=== PATIENT | male | born 1980 | race African-American/Black ===

== ENCOUNTER 2021-04-16 18:42 | Emergency (ER) | payer MEDICAID ==
[~2021-04-16] VITALS: Ht 180.3 cm; Wt 93.0 kg
--- NOTE | 2021-04-16 18:55 | NUR ---
41 YRS male c/o syncope after covid ingection awake and alert no weekness
[2021-04-16] MEDS ORDERED: BP MEDICATION (18:58)
[2021-04-16] MEDS ORDERED: FURO20TA90 (18:58)
--- NOTE | 2021-04-16 19:10 | NUR ---
hand off to Recordo rn
[2021-04-16 19:43] LABS: HEMATOCRIT 42.9 % (36.7-47.1); MEAN CORPUSCULAR HEMOGLOBIN 30.9 uug (23.8-33.4); MEAN CORPUSCULAR VOLUME 92.1 fL (73.0-96.2); PLATELET COUNT (AUTO) 336 K/uL (152-348)
[2021-04-16 19:49] LABS: CREATININE 1.5 mg/dL (0.6-1.3); POTASSIUM 3.7 mmol/L (3.5-5.1)
[2021-04-16 20:05] LABS: MAGNESIUM 2.1 mg/dL (1.8-2.4)
--- NOTE | 2021-04-16 20:51 | NUR ---
CALLED RADIOLOGY FOR VENTILATION PERFUSION LUNG SCAN, PROVIDED ALEJANDRA'S NUMBER AT [phone]. DR. JORDI MAXWELL WITH [facility].
--- NOTE | 2021-04-16 21:00 | NUR ---
Pt was accompained home with his .
--- NOTE | 2021-04-16 21:00 | NUR ---
Patient does not wish to proceed with medical care recommended by Dr. Robb. Patient given information related to possible complications, up to and including , which could occur as a result of leaving the hospital at this time. Patient verbalizes understanding of risks involved due to leaving against medical advice. Patient has signed AMA form.
--- NOTE | 2021-04-16 21:00 | NUR ---
IV removed. Catheter intact and site benign. Pressure and 4x4 gauze applied to site. No bleeding noted.
== END 2021-04-16 21:02 | disposition left against medical advice (07) ==
LOC: ER 18:44
DX: R55 Syncope and collapse (principal); I11.0 Hypertensive heart disease with heart failure; I50.9 Heart failure, unspecified; Z59.01 Sheltered homelessness; Z53.29 Procedure and treatment not carried out because of patient's decision for other reasons; R94.31 Abnormal electrocardiogram [ECG] [EKG]
CPT/HCPCS: 36415; 70030-TC; 71045; 83605; 83735; 85025; 93005; A4663

== ENCOUNTER 2021-05-02 04:10 | Inpatient (IN) | payer MEDICAID, OTHER ==
[~2021-05-02] VITALS: Ht 175.3 cm; Wt 93.0 kg
[2021-05-02] VITALS (45 sets, daily range): BP systolic 36–169; BP diastolic 18–87
[~2021-05-02 04:10] MED LIST: BP MEDICATION; FURO20TA90
--- NOTE | 2021-05-02 04:15 | NUR ---
Dr. De Oliveira at bedside for MSE.
[2021-05-02] MEDS ORDERED: METO50TA16 PO (04:27)
[2021-05-02] MEDS ORDERED: ASPI81TA31 PO (04:27)
[2021-05-02] MEDS ORDERED: SPIR25TA6 PO (04:27)
[2021-05-02] MEDS ORDERED: DIGO125T5 PO (04:27)
[2021-05-02] MEDS ORDERED: HYDR-501 PO (04:27)
[2021-05-02] MEDS ORDERED: LORAZEPAM 0.5 MG TABLET PO ONE (04:30)
[2021-05-02] MEDS ORDERED: LORAZEPAM 1 MG TABLET ONE (04:31)
--- NOTE | 2021-05-02 04:50 | NUR ---
Pt out of ER for CT.
--- NOTE | 2021-05-02 05:04 | NUR ---
Pt back to ER from CT.
[2021-05-02 05:24] LABS: MEAN CORPUSCULAR HEMOGLOBIN 30.5 uug (23.8-33.4); MEAN CORPUSCULAR VOLUME 92.5 fL (73.0-96.2); PLATELET COUNT (AUTO) 319 K/uL (152-348)
[2021-05-02 06:42] LABS: CREATININE 1.9 mg/dL (0.6-1.3); POTASSIUM 5.1 mmol/L (3.5-5.1)
[2021-05-02 06:59] LABS: BILIRUBIN,DIRECT 1.1 mg/dL (0.0-0.2); BILIRUBIN,TOTAL 2.5 mg/dL (0.2-1.0); TOTAL PROTEIN, SERUM 8.1 g/dL (6.4-8.2)
--- NOTE | 2021-05-02 07:03 | NUR ---
Report given to Jose dunn.
--- NOTE | 2021-05-02 07:10 | NUR ---
Dr Patten at bedside for full body exam, RN assisting. Patient is AO x 4, responds, but appears to be in mild distress manifested by dry heaving, although denies nausea/vomiting, although his vitals are fairly stable. Unable to get accurate SPO2 reading, after several tries. Sensors are intermittently working. Although, on good wave form, SPO2 reading is between 95 - 99% and baseline ABG's are also normal PO2 reading. Per patient, he has hx of cardiac disease and kidney disease, with meds recorded in system. 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 Denies alcohol and smoking. with new orders, RN will carryout.
[2021-05-02] MEDS ORDERED: PIPERACILLIN SODIUM/TAZOBACTAM 3.375 G in IV DEXTROSE 5% 50 ML IV ONE (07:30)
[2021-05-02] MEDS ORDERED: IV NORMAL SALINE 500 ML IV ONE (07:30)
[2021-05-02] MEDS ORDERED: DEXTROSE 50% 50 ML DISP.SYRIN ONE ×2 (07:41→09:46)
[2021-05-02] MEDS ORDERED: DEXTROSE 50% 50 ML DISP.SYRIN IV ONE ×3 (07:45→16:45)
[2021-05-02] MEDS ORDERED: PIPERACILLIN/TAZOBACTAM/D5W 50 ML IV ONE (07:46)
[2021-05-02 08:10] LABS: ETHANOL < 3 MG/DL (0-0)
[2021-05-02] MEDS ORDERED: IV D5/ 0.9% NACL 1,000 ML IV PRN (08:30)
--- NOTE | 2021-05-02 08:30 | NUR ---
After initial recheck of 102, patient went back down to 61. NS fluids stopped and switched to D5NS @ 125 cc/hr/per Dr Patten, and continue rechecks every 30 minutes.
[2021-05-02 08:39] LABS: MAGNESIUM 2.1 mg/dL (1.8-2.4)
[2021-05-02 08:41] LABS: ACETAMINOPHEN < 2.0 ug/mL (10-30); LACTATE DEHYDROGENASE 615 U/L (85-227)
--- NOTE | 2021-05-02 09:30 | NUR ---
Dr Patten s/w Dr Fritz of [facility] as requested by CM of patient' sinsurance. Per delmy Ray to admit in our hospital. CCU. Dr Bolanos was paged via [employer].
[2021-05-02] MEDS ORDERED: MORPHINE SULFATE 2 MG/1 ML DISP.SYRIN ONE (09:37)
[2021-05-02] MEDS ORDERED: VANCOMYCIN 1G/D5W 200 ML PIGGYBACK IV ONE (09:45)
--- NOTE | 2021-05-02 09:45 | NUR ---
09: RN went to patient to check blood sugar. Pt started to be in severe distress at this time, patient stated "I can't breathe". SPO2 malfunctioning, unable to get accurate reading. MD at bedside. Ordered Morphine 2mg IVP STAT and ABG STAT/RT made aware. MD also ordered CT Chest/no contrast. MD stated that also still wants a bolus of fluids despite drop in blood sugar. Changed bolus fluids from NS to LR 500cc. 30: Blood sugar check done: 43. MD made aware. Okay to still give bolus fluids, but give D50 IVP stat. 0945: All orders carried out, patient able to be sat back up on bed. RT is at bedside to do ABG on room air. SPO2 still without good wave forms, but showing 85-89% readings on RA.
--- NOTE | 2021-05-02 09:50 | NUR ---
Dr Patten s/w Dr. Bolanos who agreed to admit patient to ICU status for Lactic Acidosis and Renal Failure. Pt will go to CCU bed 1.
--- NOTE | 2021-05-02 10:00 | NUR ---
Report on hold, airframe technician is here for CT chest. But unable to take patient due to safety issues in the elevator. Initial plan is to take patient to CT then ICU, however per Nursing Identification And Records Commander, Engineering stated that both elevators are currently unsafe and they are actively working on it. Report on hold.
[2021-05-02 10:01] LABS: ABG BASE EXCESS -18.5 mmol/L; ABG HCO3 6.5 mmol/L; ABG PCO2 15.9 mmHg (35.0-45.0); ABG PH 7.229 (7.350-7.450); ABG PO2 120.7 mmHg (75.0-100.0); ABG SITE RIGHT RADIAL; ABG TOTAL HEMOGLOBIN 14.6 G/dL (13.5-18.0); COHb 0.7 % (0.5-1.5); MetHb 0.2 % (0.0-1.5); O2Hb 96.9 % (94.0-97.0); VENT MODE ROOM AIR
[2021-05-02 10:09] LABS: ABG BASE EXCESS -12.4 mmol/L; ABG HCO3 8.4 mmol/L; ABG PCO2 13.1 mmHg (35.0-45.0); ABG PH 7.424 (7.350-7.450); ABG PO2 104.6 mmHg (75.0-100.0); ABG SITE LEFT RADIAL; ABG TOTAL HEMOGLOBIN 14.9 G/dL (13.5-18.0); COHb 0.7 % (0.5-1.5); MetHb 0.2 % (0.0-1.5); O2Hb 96.8 % (94.0-97.0); VENT MODE ROOM AIR
[2021-05-02] MEDS ORDERED: IV LACTATED RINGERS SOLUTION 1,000 ML BAG IV ONE (10:15)
[2021-05-02] MEDS ORDERED: MORPHINE SULFATE 2 MG/1 ML DISP.SYRIN IV ONE ×2 (10:15→11:45)
--- NOTE | 2021-05-02 10:15 | NUR ---
Per Dr Patten, admitting MD requests patient to be in ICU PERLA, and for patient's safety and quality of care, transfer to ICU now using the guest elevator, place patients and monitor. Called CCU to give report to Danelle ICU nurse. CCU nurse and this RN with concerns about ragsdale cath and Bicarb administration, communicated to ERMD, who stated that patient's current pH say otherwise, main priority is transferring to unit while patient has fairly stabilized. WIll now transfer patient to CCU/Accmpanied by Jesus LOREDO.
--- NOTE | 2021-05-02 10:20 | NUR ---
Warm handoff to CCU Nurses. Crash cart monitored throughout transfer, normal sinus rhythm in the 90's. Pt started to dry heave in the elevator, but is still fairly responsive and follows commands. Able to transfer from chair to bed with minimal assistance. All belongings with patient, list with it. MRSA was sent. COVID (-)/
[2021-05-02 10:28] LABS: *AMPHETAMINE, URINE POSITIVE (NEGATIVE); *CANNABINOID, URINE POSITIVE (NEGATIVE); *COCCAINE, URINE NEGATIVE (NEGATIVE); *OPIATE, URINE NEGATIVE (NEGATIVE); *PHENCYCLIDINE SCREEN,URINE POSITIVE (NEGATIVE)
--- NOTE | 2021-05-02 10:40 | NUR ---
Telephone report received from Yanni Garcia. All system report received and at this time nurse question if ABG results. had been address by Md and if not we can follow up by informing admitting Dr. As stated by Ms. Jose Palacio aware and no orders received.
--- NOTE | 2021-05-02 10:50 | NUR ---
Patient in from E.R. via gopi patient noted in severe distress and short of breath as stated by him. RR in the mid-to upper 30's. HR in the NSR rate of 97, sbp of 156/96. with body temp of 96.4 Unable to obtained accurate reading of saturation. Patient cold to touch, probes noted bilateral earlobes and in fingernails. but not reading obtained. Received pt in RA. POC done at this time with reading of 104 obtained. IV access to RACMei BRISCOEA patent and infusing with D5NS at 200cc/hr. Mayuro running as well. Addendum: 05/02/21 at 1114 by MAC NGUYEN RN Pt. got situated in bed and connected to ICU monitoring.
--- NOTE | 2021-05-02 11:00 | NUR ---
Attending Dr. Bolanos notified of pt's arrival to the unit telephone report given Dr. richards of pt's current condition Stat orders for 2Decho, morphine, Picc line and Roberts insertion received. Addendum: 05/02/21 at 1117 by MAC NGUYEN RN Also orders to dcd IV fluids received and implemented.
[2021-05-02] MEDS ORDERED: MORPHINE SULFATE 2 MG/1 ML DISP.SYRIN IM PRN (11:15)
[2021-05-02 12:06] LABS: *BILIRUBIN,URIN 1+ (NEGATIVE); *CLARITY,URINE CLEAR (CLEAR); *COLOR,URINE YELLOW (YELLOW); *KETONES,URINE NEGATIVE (NEGATIVE); LEUKOCYTE ESTERASE ,URINE NEGATIVE (NEGATIVE); NITRITE, URINE NEGATIVE (NEGATIVE); PH,URINE 5.5 (5.0-8.0); UGLUCOSE NEGATIVE (NEGATIVE)
[2021-05-02 12:21] LABS: *BLOOD, URINE TRACE (NEGATIVE)
[2021-05-02] MEDS: SODIUM BICARBONATE IV PRN (12:29)
[2021-05-02] MEDS: NACL IV PRN (12:29)
[2021-05-02] MEDS: D5 IV PRN (12:29)
[2021-05-02] MEDS: NOREPINEPHRINE BITARTRATE 32 MG in IV NORMAL SALINE 218 ML IV PRN ×3 (12:41→23:00)
[2021-05-02] MEDS ORDERED: ACETAMINOPHEN 650 MG SUPP.RECT RC PRN (12:45)
[2021-05-02] MEDS ORDERED: LEVALBUTEROL HCL NEB 0.63 MG/3 ML NEBU NEB PRN (12:45)
[2021-05-02] MEDS ORDERED: ONDANSETRON 4 MG/2 ML VIAL IV PRN (12:45)
[2021-05-02] MEDS ORDERED: PHENYLEPHRINE IV 100 MG in IV NORMAL SALINE 240 ML IV PRN (12:45)
[2021-05-02] MEDS ORDERED: FUROSEMIDE 40 MG/4 ML VIAL IV ONE (12:45)
[2021-05-02] MEDS ORDERED: VANCOMYCIN IV 500 MG in IV DEXTROSE 5% 100 ML IV ONE (13:00)
--- NOTE | 2021-05-02 13:15 | NUR ---
Patient in respiratory distress restless agitated with heart rate down to bradycardia in the 47-48. pt, became cyanotic and unresponsive code luz marina called, patient with no need for CPR with returned of spontaneous circulation. At this time ER. Physician in and as previously informed pt. ready for intubation.
[2021-05-02] MEDS ORDERED: KETAMINE HCL 500 MG/10 ML INJ ONE (13:17)
[2021-05-02] MEDS ORDERED: PROPOFOL 100 ML ONE (13:25)
--- NOTE | 2021-05-02 13:26 | NUR ---
Patient received Ketamine 100mg, and a total of 200mg Succinnylcholine appropriately sedated and paralyzed and ETT 8.0 inserted with capnography verification. Patient placed on A/C 25, Tv 550, Peep +5, and 100% FIO2 and Lip line of 24 this 5 minutes later verified vi X-ray read by ER. physician. At this time and NG tube also inserted with verification also verified.
[2021-05-02] MEDS ORDERED: MORPHINE SULFATE 2 MG/1 ML DISP.SYRIN IV PRN (13:45)
[2021-05-02] MEDS: PROPOFOL 100 ML IV PRN ×2 (14:00→17:04)
[2021-05-02] MEDS ORDERED: PHENYLEPHRINE IV 50 MG in IV NORMAL SALINE 245 ML IV PRN (14:00)
[2021-05-02] MEDS ORDERED: DOSING BY PHARMACY-MD TO SPECIFY MED/ROUTE XX PRN (14:15)
--- NOTE | 2021-05-02 14:15 | NUR ---
Dr. Sibley called and updated on ABG results Vent change orders received. A/C25, Tv550, Peep+5, And FIO2 30%.
[2021-05-02 14:50] LABS: ABG BASE EXCESS -23.7 mmol/L; ABG HCO3 5.4 mmol/L; ABG PCO2 20.5 mmHg (35.0-45.0); ABG PH 7.036 (7.350-7.450); ABG PO2 559.5 mmHg (75.0-100.0); ABG SITE LEFT FEMORAL; ABG TOTAL HEMOGLOBIN 15.5 G/dL (13.5-18.0); COHb 0.2 % (0.5-1.5); MetHb 0.4 % (0.0-1.5); O2Hb 99.1 % (94.0-97.0); VENT MODE VENT - A/C; VT, ABG 550 mL
[2021-05-02] MEDS ORDERED: SUCCINYLCHOLINE CHLORIDE 200 MG/10 ML VIAL IV ONE (15:00)
[2021-05-02 15:01] LABS: CREATININE 2.9 mg/dL (0.6-1.3)
[2021-05-02 15:05] LABS: POTASSIUM 7.1 mmol/L (3.5-5.1)
[2021-05-02] MEDS ORDERED: DOPamine IV DRIP 400 MG/250ML 250 ML ONE (15:11)
[2021-05-02] MEDS ORDERED: SODIUM BICARBONATE 8.4% 50 MEQ/50 ML DISP.SYRIN IV ONE ×3 (15:11→21:00)
[2021-05-02] MEDS: DOPamine IV DRIP 400 MG/250ML 250 ML IV PRN ×3 (15:17→19:51)
[2021-05-02] MEDS ORDERED: PIPERACILLIN SODIUM/TAZOBACTAM 3.375 G in IV DEXTROSE 5% 50 ML IV SCH ×2 (16:00→17:00)
[2021-05-02] MEDS ORDERED: PIPERACILLIN/TAZO 2.25 G in IV DEXTROSE 5% 50 ML IV SCH ×2 (16:00→18:00)
--- NOTE | 2021-05-02 16:30 | NUR ---
A call back from Director [facility] [employer] Dr. Sibley report given orders for bicarb 2 amps IVP to be given at 2100 received, as well as chest Xray ABG for [id number] at 0800. am, cpk , cbc, cmp, amylase, lypase.
[2021-05-02] MEDS ORDERED: INSULIN REGULAR, HUMAN 300 UNIT/3 ML VIAL IV ONE (16:45)
[2021-05-02] MEDS ORDERED: CALCIUM GLUCONATE IV 1 GM in IV NORMAL SALINE 100 ML IV ONE (16:45)
--- NOTE | 2021-05-02 16:45 | NUR ---
Critical lab reported to Dr. Bolanos orders received and implemented at the time a call returned discussed results with Dr. Patten who remains at bedside after inserting a central line.
[2021-05-02] MEDS: PHENYLEPHRINE IV 100 MG in IV NORMAL SALINE 240 ML IV PRN (17:00)
[2021-05-02] MEDS: HYDROCORTISONE SOD SUCCINATE 100 MG/2 ML VIAL IV SCH (17:12)
[2021-05-02 17:24] LABS: BACTERIA,URINE 2 /HPF (NONE SEEN); SPERM,URINE FEW /HPF (NONE SEEN); SQUAMOUS EPITHELIAL CELL,UR FEW /HPF (NONE SEEN); URINE AMORPHOUS URATE MODERATE /HPF
--- NOTE | 2021-05-02 17:30 | NUR ---
Ms Conner Horn a lady claiming to be pt's mother at bedside She left her number . she requested to be updated. and she was informed that case management and executive secretary social welfare will follow up on pt. and that Sarah Hayesjose armando listed as next of mita and health care attorney will be informed and that she will up date her. At this time she show me her ID and a pt's sister Ms Frausto and pt's significant other and health care attorney Ms Summers approved us to discussed and update Ms. Conner and stated she can also take decisions on pt's behalf.
--- NOTE | 2021-05-02 18:52 | NUR ---
Left pt. on ventilator ETT 8.0 LL26, on A/C 25, TV 550, Peep+5 and FIO2 30%. Unable to get a saturation pt. remains cold to touch. hemodynamically unstable on neosynephrine maxed out, levophed maxed out and dopamine maxed out. Neuro-hodgson pt. left sedated and on propofol running at 50mcg/kg/min. On bicarb drip. Roberts to gravity with no urine output all disciplines involve aware. Central line to righ femoral and picc line DENILSON. patent.
--- NOTE | 2021-05-02 19:12 | NUR ---
Attending physician at bedside updating pt's Ms. Fernandez.
[2021-05-02 21:17] LABS: ALANINE AMINOTRANSFERASE 2596 U/L (16-63); ALKALINE PHOSPHATASE 153 U/L (50-136); BILIRUBIN,TOTAL 4.5 mg/dL (0.2-1.0); CARBON DIOXIDE 15 mmol/L (21-32); CHLORIDE 100 mmol/L (98-107); CREATININE 3.5 mg/dL (0.6-1.3); GLUCOSE 81 mg/dL (74-106); POTASSIUM 5.7 mmol/L (3.5-5.1); TOTAL PROTEIN, SERUM 7.8 g/dL (6.4-8.2); UREA NITROGEN, BLOOD 29 mg/dL (7-18)
[2021-05-02 21:41] LABS: ASPARTATE AMINOTRANSFERASE > 4000 U/L (15-37)
[2021-05-03] VITALS (70 sets, daily range): BP systolic 46–159; BP diastolic 26–96
[2021-05-03] MEDS: VASOPRESSIN 40 UNIT in IV NORMAL SALINE 40 ML IV PRN ×2 (00:14→09:38)
--- NOTE | 2021-05-03 01:00 | NUR ---
Slight left nare nose bleed.
[2021-05-03] MEDS: DOPamine IV DRIP 400 MG/250ML 250 ML IV PRN ×3 (02:06→07:04)
[2021-05-03] MEDS: PROPOFOL 100 ML IV PRN ×2 (02:18→14:15)
--- NOTE | 2021-05-03 02:20 | NUR ---
Unable B/P reading notified Dr Elena. To request Dr Beatriz ARTEAGA to place A-line; was placed 0315 hrs.
[2021-05-03] MEDS: D5 IV PRN ×3 (03:20→19:11)
[2021-05-03] MEDS: SODIUM BICARBONATE IV PRN ×3 (03:20→19:11)
[2021-05-03] MEDS: NACL IV PRN ×3 (03:20→19:11)
--- NOTE | 2021-05-03 04:29 | NUR ---
PATIENT ON CONT STARR VENT WITH 8.0 ET/TUBE 24CM LIP LINE, WITH ANCHOR FAST IN PLACE , VENT SETTINGS, A/C A/C 25, 550ML, 30%, PEEP 5, PT SEDATED, VERY WEAK GAG REFLEX, SEDATION GIVEN,NO VENT CHANGES MADE,Mesfin GARCIA RCP Addendum: 05/03/21 at 0432 by JOANNA GARCIA RT Amended: Links added.
[2021-05-03] MEDS: HYDROCORTISONE SOD SUCCINATE 100 MG/2 ML VIAL IV SCH ×3 (04:30→21:13)
[2021-05-03] MEDS ORDERED: Z GUARD REMEDY PASTE 57 GM TUBE TOP PRN (05:00)
[2021-05-03] MEDS: PHENYLEPHRINE IV 100 MG in IV NORMAL SALINE 240 ML IV PRN ×5 (05:40→21:45)
[2021-05-03] MEDS: NOREPINEPHRINE BITARTRATE 32 MG in IV NORMAL SALINE 218 ML IV PRN ×4 (06:00→21:48)
[2021-05-03 06:06] LABS: HEMATOCRIT 45.3 % (36.7-47.1); MEAN CORPUSCULAR HEMOGLOBIN 30.5 uug (23.8-33.4); MEAN CORPUSCULAR VOLUME 100.1 fL (73.0-96.2); PLATELET COUNT (AUTO) 137 K/uL (152-348)
[2021-05-03 06:12] LABS: *BILIRUBIN,URIN 1+ (NEGATIVE); *BLOOD, URINE 3+ (NEGATIVE); *CLARITY,URINE CLOUDY (CLEAR); *KETONES,URINE NEGATIVE (NEGATIVE); LEUKOCYTE ESTERASE ,URINE NEGATIVE (NEGATIVE); NITRITE, URINE NEGATIVE (NEGATIVE); UGLUCOSE NEGATIVE (NEGATIVE)
[2021-05-03 06:28] LABS: *COLOR,URINE BLOODY (YELLOW)
[2021-05-03 06:30] LABS: *CREATININE,URINE 33.4 mg/dL (30-125); *URINE TOTAL PROTEIN RANDOM 613.2 mg/dL (<150/24HR)
[2021-05-03 06:33] LABS: THYROID STIMULATING HORMONE 3.768 mIU/mL (0.358-3.740)
[2021-05-03 06:44] LABS: ALKALINE PHOSPHATASE 154 U/L (50-136); AMYLASE 225 U/L (25-115); BILIRUBIN,TOTAL 4.6 mg/dL (0.2-1.0); CARBON DIOXIDE 14 mmol/L (21-32); CHLORIDE 100 mmol/L (98-107); CHOLESTEROL 152 mg/dL (<200); CREATININE 4.2 mg/dL (0.6-1.3); GLUCOSE 55 mg/dL (74-106); HDL CHOLESTEROL 26 mg/dL (40-60); MAGNESIUM 2.2 mg/dL (1.8-2.4); TRIGLYCERIDES 178 MG/DL (30-150); UREA NITROGEN, BLOOD 29 mg/dL (7-18)
[2021-05-03 06:46] LABS: BACTERIA,URINE NONE SEEN /HPF (NONE SEEN); RBC,URINE TNTC /HPF (0-3); SQUAMOUS EPITHELIAL CELL,UR FEW /HPF (NONE SEEN)
[2021-05-03 07:28] LABS: CREATINE KINASE, TOTAL 1289 U/L (39-308); LIPASE 838 U/L (73-393); VANCOMYCIN,RANDOM 19.2 ug/mL (18.0-26.0)
[2021-05-03 07:58] LABS: ABG BASE EXCESS -25.7 mmol/L; ABG HCO3 4.3 mmol/L; ABG PCO2 18.3 mmHg (35.0-45.0); ABG PH 6.985 (7.350-7.450); ABG PO2 114.1 mmHg (75.0-100.0); ABG SITE A-Line; ABG TOTAL HEMOGLOBIN 12.6 G/dL (13.5-18.0); COHb 0.3 % (0.5-1.5); MetHb 0.2 % (0.0-1.5); O2Hb 95.6 % (94.0-97.0); VENT MODE VENT - A/C; VT, ABG 550 mL
--- NOTE | 2021-05-03 08:00 | NUR ---
Patient seen by attending physician DR. Luis Miguel Grewal report given and orders to continue with care plan received.
--- NOTE | 2021-05-03 08:04 | NUR ---
A call to Dr. Bernal to report most recent ABG's orders for Bicarb 3 amps IVP received and implemented.
[2021-05-03 08:14] LABS: PHOSPHOROUS 11.9 mg/dL (2.5-4.9)
[2021-05-03] MEDS ORDERED: IV LACTATED RINGERS SOLUTION 1,000 ML BAG IV ONE (08:15)
[2021-05-03] MEDS ORDERED: SODIUM BICARBONATE 8.4% 50 MEQ/50 ML DISP.SYRIN IV ONE ×2 (08:15→22:00)
[2021-05-03] MEDS ORDERED: DEXTROSE 50% 50 ML DISP.SYRIN ONE (08:25)
[2021-05-03] MEDS: PANTOPRAZOLE SODIUM 40 MG VIAL IV SCH (08:39)
[2021-05-03] MEDS: Z GUARD REMEDY PASTE 57 GM TUBE TOP SCH ×2 (08:41→20:16)
[2021-05-03] MEDS ORDERED: IV LACTATED RINGERS SOLUTION 500 ML IV ONE (08:45)
--- NOTE | 2021-05-03 08:45 | NUR ---
Received pt. on ventilator A/C 25, Tv550 Peep+5 with unreadable saturation. Hemodynamically unstable maxed out on neosyneprhine, dopamine, levophed, and pitressin. and bicarb drip running, unreadable, non-invasive SBP. Arterial line to right wrist area trouble shot and connected with reading in the 80's. Roberts to gravity, sinus rhythm in the low 120's. Central line to right Growing, and picc line DENILSON patent. Will continue to monitor.
[2021-05-03] MEDS ORDERED: CEFEPIME HCL 2 G in IV DEXTROSE 5% 100 ML IV SCH (09:00)
[2021-05-03] MEDS ORDERED: ALBUMIN HUMAN 25% 100 ML IV PRN (09:15)
[2021-05-03 09:17] LABS: ALANINE AMINOTRANSFERASE 870 U/L (16-63); ASPARTATE AMINOTRANSFERASE < 5 U/L (15-37)
--- NOTE | 2021-05-03 09:25 | NUR ---
Sherlyn Cervantes in the unit patient prepared for procedure.
--- NOTE | 2021-05-03 09:30 | NUR ---
[employer] Making Dr. uBrr in the unit to see and examine pt. report given orders to continue care plan received.
[2021-05-03] MEDS: DOPamine IV DRIP 800 MG/250ML 250 ML IV PRN ×4 (09:45→23:27)
[2021-05-03] MEDS ORDERED: PHYTONADIONE 10 MG/1 ML AMPUL SQ ONE (12:15)
--- NOTE | 2021-05-03 13:30 | NUR ---
Fixed Income Director Dr. Sibley in the unit to examine pt. report given with orders to continue care plan received.
[2021-05-03 14:40] LABS: ALKALINE PHOSPHATASE 171 U/L (50-136); BILIRUBIN,TOTAL 5.1 mg/dL (0.2-1.0); CARBON DIOXIDE 15 mmol/L (21-32); CHLORIDE 98 mmol/L (98-107); CREATININE 3.9 mg/dL (0.6-1.3); GLUCOSE 94 mg/dL (74-106); TOTAL PROTEIN, SERUM 6.6 g/dL (6.4-8.2); UREA NITROGEN, BLOOD 26 mg/dL (7-18)
[2021-05-03 15:10] LABS: ALANINE AMINOTRANSFERASE > 7000 U/L (16-63)
[2021-05-03 15:25] LABS: ASPARTATE AMINOTRANSFERASE > 4000 U/L (15-37)
--- NOTE | 2021-05-03 18:30 | NUR ---
Left pt. on ventilator A/C 25, Tv550 Peep+5 with unreadable saturation. Hemodynamically unstable maxed out on neosyneprhine, dopamine, levophed, and pitressin. and bicarb drip running, unreadable, on/off NIBP. Arterial line to right wrist area flushing patent with readings in the 60's. Roberts to gravity pt remains anuric., pt. tolerated fairly first round of dialysis un-eventfully. Will endorse to incoming shift.
[2021-05-03] MEDS: MICAFUNGIN SODIUM 50 MG in IV NORMAL SALINE 100 ML IV SCH (19:39)
[2021-05-03] MEDS: MEROPENEM 1 G in IV NORMAL SALINE 100 ML IV SCH (19:39)
--- NOTE | 2021-05-03 21:49 | NUR ---
PATIENT ON STRAR VENT WITH 8.0 ET/TUBE IN PLACE WITH ANCHOR FAST, NON RESPONSIVE, BUT DOES ASSIST AT TIMES, VERY LABORED, SETTINGS, A/C 25, 550ML, 30%, PEEP5, ATTEMPTED ABG, BUT MIXED VENOUS, RESULTS SHOWED TO GIFTY Liao , SUCTIONED VERY LITTLE PALE YELL TINGE SECRETIONS , HARD TO GET READING ON PULSE OXY, NURSING AWARE, HARD TO FEEL PULSES, AMBU BAG AT BEDSIDE .Mesfin WILSONP Addendum: 05/03/21 at 2153 by JOANNA GARCIA RT Amended: Links added.
--- NOTE | 2021-05-03 22:00 | NUR ---
Updated Matthew Villela N.P., who discussed with Dr Kinney. No new orders.
[2021-05-03 22:19] LABS: CREATININE 5.4 mg/dL (0.6-1.3)
[2021-05-03 22:47] LABS: ABG PCO2 72.4 mmHg (35.0-45.0); ABG SITE LEFT RADIAL; ABG TOTAL HEMOGLOBIN 13.7 G/dL (13.5-18.0); COHb 0.3 % (0.5-1.5); O2Hb 12.6 % (94.0-97.0); VENT MODE VENT - A/C; VT, ABG 550 mL
[2021-05-03 22:48] LABS: POTASSIUM 6.2 mmol/L (3.5-5.1)
[2021-05-03] MEDS ORDERED: DEXTROSE 50% 50 ML DISP.SYRIN IV ONE (23:00)
[2021-05-03] MEDS ORDERED: INSULIN REGULAR, HUMAN 300 UNIT/3 ML VIAL IV ONE (23:00)
--- NOTE | 2021-05-03 23:37 | NUR ---
50%D 50 ml IVP f/b 10 u RI to treat K+ 6.2
[2021-05-04] VITALS (78 sets, daily range): BP systolic 32–124; BP diastolic 22–85
[2021-05-04] MEDS: NOREPINEPHRINE BITARTRATE 32 MG in IV NORMAL SALINE 218 ML IV PRN ×4 (03:06→20:14)
[2021-05-04] MEDS: PHENYLEPHRINE IV 100 MG in IV NORMAL SALINE 240 ML IV PRN ×4 (03:45→21:42)
[2021-05-04] MEDS: DOPamine IV DRIP 800 MG/250ML 250 ML IV PRN ×4 (03:54→17:39)
[2021-05-04] MEDS ORDERED: SODIUM BICARBONATE 4.2 % (NEUT) 5 ML VIAL ONE (04:21)
[2021-05-04] MEDS ORDERED: SODIUM BICARBONATE 8.4% 50 MEQ/50 ML DISP.SYRIN IV ONE (04:29)
[2021-05-04] MEDS: NACL IV PRN ×3 (04:32→21:06)
[2021-05-04] MEDS: D5 IV PRN ×3 (04:32→21:06)
[2021-05-04] MEDS: SODIUM BICARBONATE IV PRN ×3 (04:32→21:06)
[2021-05-04] MEDS: HYDROCORTISONE SOD SUCCINATE 100 MG/2 ML VIAL IV SCH ×3 (05:06→22:35)
[2021-05-04 05:48] LABS: HEMATOCRIT 41.7 % (36.7-47.1); MEAN CORPUSCULAR VOLUME 96.4 fL (73.0-96.2); PLATELET COUNT (AUTO) 93 K/uL (152-348)
[2021-05-04 06:02] LABS: CREATININE 5.9 mg/dL (0.6-1.3); MAGNESIUM 1.8 mg/dL (1.8-2.4)
[2021-05-04 06:18] LABS: PHOSPHOROUS 11.4 mg/dL (2.5-4.9); POTASSIUM 6.2 mmol/L (3.5-5.1)
[2021-05-04] MEDS ORDERED: DEXTROSE 50% 50 ML DISP.SYRIN IV ONE (06:30)
[2021-05-04] MEDS ORDERED: INSULIN REGULAR, HUMAN 300 UNIT/3 ML VIAL IV ONE (06:30)
--- NOTE | 2021-05-04 06:30 | NUR ---
50%D 50 ml IVP f/b 10 u RI to treat K+ 6.2
[2021-05-04] MEDS: VASOPRESSIN 40 UNIT in IV NORMAL SALINE 40 ML IV PRN (06:55)
--- NOTE | 2021-05-04 07:25 | NUR ---
GI consult . in the unit report given as stated by . "No procedures recommended at this time since pt. critically ill".
--- NOTE | 2021-05-04 07:32 | NUR ---
Patient received on ventilator A/C 25, Tv550 Peep+5 and FIO2 100%with unreadable saturation patient on agonal breathing, no sedation since pt. not backing up ventilator. Hemodynamically unstable maxed out on neosyneprhine, dopamine, levophed, and pitressin. and bicarb drip running, unreadable, on/off NIBP. Arterial line to right wrist area flushing patent with readings in the high 60s, low 70's. Roberts to gravity pt remains anuric., pt. tolerated fairly first round of dialysis un-eventfully. Will endorse to incoming shift. Will continue with care plan.
--- NOTE | 2021-05-04 07:58 | NUR ---
NIGHT CLEANER ON HIS WAY TO DO STUDY THAT WAS ORDERED US ABD LIMITED
--- NOTE | 2021-05-04 08:17 | NUR ---
Caridologist Dr. Castillo in the unit to examine pt. report given orders received. See order hx.
[2021-05-04 08:18] LABS: ABG BASE EXCESS -16.1 mmol/L; ABG HCO3 9.7 mmol/L; ABG PCO2 24.3 mmHg (35.0-45.0); ABG PH 7.221 (7.350-7.450); ABG PO2 202.8 mmHg (75.0-100.0); ABG SITE RIGHT BRACHIAL; ABG TOTAL HEMOGLOBIN 13.4 G/dL (13.5-18.0); COHb 0.4 % (0.5-1.5); MetHb 0.3 % (0.0-1.5); O2Hb 98.1 % (94.0-97.0); VENT MODE VENT - A/C; VT, ABG 550 mL
--- NOTE | 2021-05-04 08:30 | NUR ---
RT Sheffield at bedside and as reported FIO2 down to 80% based on ABG results.
[2021-05-04] MEDS: Z GUARD REMEDY PASTE 57 GM TUBE TOP SCH ×2 (08:31→20:21)
[2021-05-04] MEDS: PANTOPRAZOLE SODIUM 40 MG VIAL IV SCH (08:31)
--- NOTE | 2021-05-04 08:38 | NUR ---
Pulmonary services, Dr. Owusu in the unit to examine pt. ABG reported with no vent change orders received.
[2021-05-04 08:48] LABS: ALANINE AMINOTRANSFERASE 3001 U/L (16-63); ALKALINE PHOSPHATASE 211 U/L (50-136); ASPARTATE AMINOTRANSFERASE < 5 U/L (15-37); BILIRUBIN,TOTAL 6.4 mg/dL (0.2-1.0); TOTAL PROTEIN, SERUM 6.2 g/dL (6.4-8.2)
[2021-05-04] MEDS: DOBUTamine IV 250 ML IV PRN ×4 (08:54→21:16)
[2021-05-04] MEDS ORDERED: VANCOMYCIN IV 1,000 MG in IV DEXTROSE 5% 250 ML IV ONE (15:00)
[2021-05-04] MEDS: PROPOFOL 100 ML IV PRN (16:27)
--- NOTE | 2021-05-04 17:45 | NUR ---
At this time Dr. Hartmannhis in the unit to follow up on pt. report given. inquire about nearest relative and He was informed about pt's girlfriend and pt's mother. spoke with Pt's mother Ms. Dalila Horn and after a long update of care plan which included pt's current critical condition. informed the under-signee in the unit that code status will be changed to DNR as decided by Ms. Cullen. attending Dr. Bolanos informed.
--- NOTE | 2021-05-04 19:00 | NUR ---
1900 Received patient nonverbal, responsive to painful stimuli, sedated. No signs of distress noted. ET 8.0, 26LL, with vent settings of AC 25, TV 550, PEEP 5, FiO2 80%, O2 sat of 71%. ST on the monitor, NA=660. NG tube at R nare and clamped. Roberts catheter with minimal output. With the following IV lines: 1) DENILSON PICC line with ongoing Pitressin @ 0.04U/min, Levophed @ 1mcg/kg/min, Bicarb @125mls/hr, Dopamine @30mcg/kg/min; 2) L femoral Rodolfo catheter for HD. 3) RW hooked to A line with IBP 71/58 4) VALENTIN 20G with ongoing 2nd unit of plasma transfusion; 5) RH 22G SL 6) RAC 20G SL 7) R femoral TLC with ongoing Dobutamine 20mcg/kg/min, [id number] @ 3mcg/kg/min, Propofol @10mcg/kg/min, NS TKO @5mls/hr
--- NOTE | 2021-05-04 19:12 | NUR ---
pt. left on ventilator A/C 25, Tv550 Peep+5 and FIO2 80 %with saturation on abg 98% peripherally in the 70's. patient on labor breathing, propofol on 10cc/hr. since pt. was backing up ventilator. Hemodynamically unstable maxed out on neosyneprhine, dopamine, levophed, and pitressin, and dobutamine, and vasopressin. and bicarb drip running, unreadable, on/off NIBP. Arterial line to right wrist area flushing patent with readings in the high 70s, mid 70's. Roberts to gravity pt remains anuric with output in the tubing bloody. Pt. receiving 2nda plasma pt. Will endorse to incoming shift. Will continue with care plan.
--- NOTE | 2021-05-04 19:30 | NUR ---
Seen and examined by Dr. Bolanos, with no new orders.
[2021-05-04] MEDS: MICAFUNGIN SODIUM 50 MG in IV NORMAL SALINE 100 ML IV SCH (20:16)
[2021-05-04] MEDS: MEROPENEM 1 G in IV NORMAL SALINE 100 ML IV SCH (20:16)
--- NOTE | 2021-05-04 20:40 | NUR ---
Pre VS taken for cryoprecipitate transfusion.
--- NOTE | 2021-05-04 20:45 | NUR ---
Girlfriend at bedside, report given.
--- NOTE | 2021-05-04 21:00 | NUR ---
1 bag of cryoprecipitate started. Will continue to monitor closely.
--- NOTE | 2021-05-04 21:15 | NUR ---
VSS. No signs of reaction noted.
--- NOTE | 2021-05-04 22:00 | NUR ---
Cryoprecipitate transfusion done. VSS.
--- NOTE | 2021-05-04 22:10 | NUR ---
Called lab and spoke to Mario Alberto for 2nd bag of cryoprecipitate. Mario Alberto said, "I am still going to thaw it."
--- NOTE | 2021-05-04 23:15 | NUR ---
2nd bag of cryoprecipitate started.
[2021-05-05] VITALS (69 sets, daily range): BP systolic 30–157; BP diastolic 28–106
--- NOTE | 2021-05-05 | NUR ---
VSS. No signs of reaction noted.
--- NOTE | 2021-05-05 00:15 | NUR ---
Cryoprecipitate transfusion done. VSS.
--- NOTE | 2021-05-05 00:30 | NUR ---
AM care done. Linen changed.
[2021-05-05] MEDS: DOBUTamine IV 250 ML IV PRN ×8 (00:49→22:20)
[2021-05-05] MEDS: VASOPRESSIN 40 UNIT in IV NORMAL SALINE 40 ML IV PRN ×2 (01:22→10:27)
[2021-05-05] MEDS: NOREPINEPHRINE BITARTRATE 32 MG in IV NORMAL SALINE 218 ML IV PRN ×4 (02:37→21:16)
[2021-05-05] MEDS: DOPamine IV DRIP 800 MG/250ML 250 ML IV PRN ×3 (03:38→12:49)
--- NOTE | 2021-05-05 03:56 | NUR ---
RECEIVED PATIENT ON A STARR VENTILATOR INTUBATED WITH A SIZE 8.0 ET TUBE. ET TUBE IS SECURED WITH ANCHOR FAST. PATIENT IS ON THE FOLLOWING SETTINGS THAT ARE CHARTED ON THE MECHANICAL NOTES. SPO2 READINGS HAVE BEEN LOW. GERTRUDE PARK IS AWARE. PATIENT IS NOW ON 100% FiO2. AMBU BAG IS BY BEDSIDE. VENT IS PLUGGED IN THE RED OUTLET. VENT ALARMS ON AND AUDIBLE. NO SOB NOTED AT THIS TIME. WILL CONTINUE TO MONITOR.
[2021-05-05] MEDS: PHENYLEPHRINE IV 100 MG in IV NORMAL SALINE 240 ML IV PRN ×4 (04:10→21:34)
[2021-05-05] MEDS: PROPOFOL 100 ML IV PRN ×2 (04:43→14:31)
[2021-05-05 05:17] LABS: HEMATOCRIT 34.9 % (36.7-47.1); MEAN CORPUSCULAR HEMOGLOBIN 30.1 uug (23.8-33.4); MEAN CORPUSCULAR VOLUME 91.8 fL (73.0-96.2); PLATELET COUNT (AUTO) 58 K/uL (152-348)
[2021-05-05] MEDS: D5 IV PRN ×2 (05:36→13:38)
[2021-05-05] MEDS: NACL IV PRN ×2 (05:36→13:38)
[2021-05-05] MEDS: SODIUM BICARBONATE IV PRN ×2 (05:36→13:38)
[2021-05-05 05:46] LABS: BILIRUBIN,DIRECT 4.8 mg/dL (0.0-0.2); BILIRUBIN,TOTAL 7.9 mg/dL (0.2-1.0); CREATININE 6.9 mg/dL (0.6-1.3); MAGNESIUM 1.6 mg/dL (1.8-2.4); POTASSIUM 4.1 mmol/L (3.5-5.1); TOTAL PROTEIN, SERUM 5.8 g/dL (6.4-8.2); VANCOMYCIN,RANDOM 21.4 ug/mL (18.0-26.0)
[2021-05-05 05:54] LABS: ABG BASE EXCESS -10.7 mmol/L; ABG HCO3 11.7 mmol/L; ABG PCO2 17.2 mmHg (35.0-45.0); ABG PH 7.451 (7.350-7.450); ABG PO2 144.8 mmHg (75.0-100.0); ABG SITE A-Line; ABG TOTAL HEMOGLOBIN 8.4 G/dL (13.5-18.0); COHb 0.3 % (0.5-1.5); MetHb 0.7 % (0.0-1.5); O2Hb 97.1 % (94.0-97.0); VENT MODE VENT - A/C; VT, ABG 550 mL
[2021-05-05 06:07] LABS: PHOSPHOROUS 8.3 mg/dL (2.5-4.9)
--- NOTE | 2021-05-05 06:32 | NUR ---
Left patient Received patient nonverbal, responsive to painful stimuli, sedated. No signs of distress noted. ET 8.0, 26LL, with vent settings of AC 25, TV 550, PEEP 5, FiO2 80%, O2 sat of 46%. ST on the monitor, UE=706. NG tube at R nare and clamped. Roberts catheter with minimal output. With the following IV lines: 1) DENILSON PICC line with ongoing Pitressin @ 0.04U/min, Levophed @ 1mcg/kg/min, Bicarb @125mls/hr, Dopamine @30mcg/kg/min; 2) L femoral Rodolfo catheter for HD. 3) RW hooked to A line with IBP 4) VALENTIN 20G with ongoing 2nd unit of plasma transfusion; 5) RH 22G SL 6) RAC 20G SL 7) R femoral TLC with ongoing Dobutamine 20mcg/kg/min, Neosynephrine @3mcg/kg/min, Propofol @10mcg/kg/min, NS TKO @5mls/hr. Endorsed to AM RN for continuity of care. Addendum: 05/05/21 at 0639 by Sasha Herrera RN A line with IBP 113/73
[2021-05-05 06:39] LABS: BAND % (MANUAL) 13 % (0-10); LYMPHOCYTES % (MANUAL) 4 % (20-40); MONOCYTES % (MANUAL) 2 % (2-10); NEUTROPHILS % (MANUAL) 81 % (42-75)
--- NOTE | 2021-05-05 06:40 | NUR ---
Dr. Elena made aware regarding critical lab results, with new orders. Noted and carried out.
[2021-05-05] MEDS: HYDROCORTISONE SOD SUCCINATE 100 MG/2 ML VIAL IV SCH ×3 (07:15→22:06)
[2021-05-05] MEDS ORDERED: CALCIUM GLUCONATE IV 2 GM in IV NORMAL SALINE 100 ML IV ONE (08:00)
[2021-05-05 08:06] LABS: HEPATITIS B SURFACE AG Negative (Negative)
[2021-05-05 08:06] LABS: HEPATITIS A AB, IgM Negative (Negative); HEPATITIS B SURFACE AG Negative (Negative)
[2021-05-05] MEDS: Z GUARD REMEDY PASTE 57 GM TUBE TOP SCH ×2 (08:08→20:59)
[2021-05-05] MEDS: PANTOPRAZOLE SODIUM 40 MG VIAL IV SCH (08:08)
--- NOTE | 2021-05-05 08:21 | NUR ---
A call from Mee Horn pt's mother and she requested to have the services, of a chaplan. nursing incendiaries supervisor Anaid called and notified. As stated "Shell make arrangements to have one today".
--- NOTE | 2021-05-05 09:14 | NUR ---
Pulmonary services, Dr. Owusu in the unit to see and follow up on patient. Addendum: 05/05/21 at 0914 by MAC NGUYEN RN Report given see order hx.
[2021-05-05] MEDS ORDERED: MAGNESIUM SULFATE/D5W 100 ML IV SCH (10:15)
--- NOTE | 2021-05-05 10:45 | NUR ---
A call from our Elizabeth information for pt's mother provided to arrange meeting awaiting for time.
--- NOTE | 2021-05-05 12:26 | NUR ---
Attending physician Dr. Leno Freeman at bedside report given.
--- NOTE | 2021-05-05 14:30 | NUR ---
Cardiology services, Dr. Castillo in the unit to see and examine pt. report given, with orders to continue with care plan received. Addendum: 05/05/21 at 1531 by MAC NGUYEN RN At this time pt's mother Ms. Dalila Gates and pt's brother at bedside and they both were updated on care plan and pt's current condition discussed with of them.
[2021-05-05] MEDS ORDERED: DOPAMINE 400 MG/250 ML IV PRN (16:30)
--- NOTE | 2021-05-05 18:39 | NUR ---
Patient seen by Dr. Juárez report given no new orders received.
--- NOTE | 2021-05-05 19:20 | NUR ---
Pt rec'd on Garcia on settings of AC 25, VT 550, PEEP+5 and FIO2-80%. No resp. distress noted at this time. 8.0 ETT is patent and secure at approx. 24cm at the lip. Pt to be monitored throughout the shift and PRN SX. Garcia alarm parameters have been checked and remain audible. BVM at bedside.
--- NOTE | 2021-05-05 19:30 | NUR ---
rounds made patient in bed orally intubated ETT-8.0 /26 LIP LINE . ac25/550/peep5 fio80%,saturation not picking up patient in cold max on all pressors . medication in progress dobutamine drip at 20 mcg/kg/min Diprivan drip at 25 mcg/kg/min dopamine drip at 30 mcg/kg/min Levophed drip at 1 mcg/kg/min neosynephrine drip at 3 mcg/kg/min vasopressin drip at 0.04 units/min . d5ns with 2amps of sodium bicarbonate at 125 ml/hr . patient with right femoral triple lumen central line ,left upper arm piccline 3 lumen . left femoral line hemodialysis access.site cdi right wrist tricia
--- NOTE | 2021-05-05 20:30 | NUR ---
1st unit of cryoprecipitate started verified with 2 RN (GRIFFIN )lab blood bank unable to scan the barcode for the blood transfusion he advised to do it manually.
[2021-05-05] MEDS: MICAFUNGIN SODIUM 50 MG in IV NORMAL SALINE 100 ML IV SCH (20:58)
[2021-05-05] MEDS: MEROPENEM 1 G in IV NORMAL SALINE 100 ML IV SCH (20:58)
--- NOTE | 2021-05-05 21:30 | NUR ---
CALLED [employer] AND SPOKED WITH MICHELLE JAUREGUI -informing him at patient bp is very low via tricia 59/30,max on all pressors no further orders made .
--- NOTE | 2021-05-05 22:00 | NUR ---
no 2 unit of cryoprecipitate started verified with GERTRUDE MOYA .
--- NOTE | 2021-05-05 22:52 | NUR ---
patient HR RATE 0 went to asystole STRAIGHT LINE ON THE HEART MONITOR . . patient is DNR STATUS.
--- NOTE | 2021-05-05 22:52 | NUR ---
patient apneic for 5 minutes .pupils fixed and dilated no audible heart sounds for 1 minute no palpable pulses for 1 minute .no corneal reflexes pat was pronounce at 2252. physician notified.
--- NOTE | 2021-05-05 22:56 | NUR ---
called patient mother and notify patient at 2252 . she said she is calling his and her other daughter and will call me with 15 minutes.
--- NOTE | 2021-05-05 23:00 | NUR ---
CALLED [employer] AND SPOKED WITH KAJAL NOT A CANDIDATE FOR ORGAN DONATION #[phone]
--- NOTE | 2021-05-05 23:50 | NUR ---
PATIENT MOTHER CALLED SHE CANT COME TONIGHT AND UNABLE TO REACH BY THE MOTHER ,THE PROCESS BODY RELEASED WAS EXPLAINED AND THE TELEPHONE NUMBER OF THE ORACLE ENGINEER GIVEN .PATIENT NO BELONGINGS FOUND IN THE ROOM .
--- NOTE | 2021-05-06 | NUR ---
talked to mother aida , notified of process of the morgue and keypunch operators supervisor's phone number given to release the body once mortuary is arranged , verbalizes understanding
--- NOTE | 2021-05-06 01:15 | NUR ---
POST MORTEM CARE DONE .BODY WAS TAG .
--- NOTE | 2021-05-06 01:45 | NUR ---
CALLED SECURITY TO BRING BODY TO THE MORGUE .
[2021-05-06 15:30] LABS: ALPHA-1-GLOBULIN 0.2; ALPHA-2-GLOBULIN 0.7; BETA GLOBULIN 0.8; GAMMA GLOBULIN 1.8; M-SPIKE Not Observed
[2021-05-06 15:31] LABS: A/G RATIO 0.9; GLOBULIN, TOTAL 3.5
== END 2021-05-06 01:15 | DRG 720 ==
LOC: ER 04:16 → CCU 10:39
PROVIDERS: ADMIT Internal Medicine; ATTEND Internal Medicine
PROC: 5A1945Z Respiratory Ventilation, 24-96 Consecutive Hours (ICD-10-PCS; principal; 2021-05-02)
PROC: 0BH17EZ Insertion of Endotracheal Airway into Trachea, Via Natural or Artificial Opening (ICD-10-PCS; principal; 2021-05-02)
PROC: 02HV33Z Insertion of Infusion Device into Superior Vena Cava, Percutaneous Approach (ICD-10-PCS; principal; 2021-05-02)
PROC: B548ZZA Ultrasonography of Superior Vena Cava, Guidance (ICD-10-PCS; principal; 2021-05-02)
PROC: 03HY32Z Insertion of Monitoring Device into Upper Artery, Percutaneous Approach (ICD-10-PCS; 2021-05-03)
PROC: 30243N1 Transfusion of Nonautologous Red Blood Cells into Central Vein, Percutaneous Approach (ICD-10-PCS; 2021-05-04)
PROC: 302 Administration, Circulatory, Transfusion (ICD-10-PCS; 2021-05-04)
DX: A41.9 Sepsis, unspecified organism (principal); D65 Disseminated intravascular coagulation [defibrination syndrome]; J96.01 Acute respiratory failure with hypoxia; J96.02 Acute respiratory failure with hypercapnia; N17.0 Acute kidney failure with tubular necrosis; K72.00 Acute and subacute hepatic failure without coma; K81.0 Acute cholecystitis; G93.40 Encephalopathy, unspecified; R18.8 Other ascites; E87.1 Hypo-osmolality and hyponatremia; T50.901A Poisoning by unspecified drugs, medicaments and biological substances, accidental (unintentional), initial encounter; I31.3 Pericardial effusion (noninflammatory); Z66 Do not resuscitate; F15.10 Other stimulant abuse, uncomplicated; E16.2 Hypoglycemia, unspecified; F17.210 Nicotine dependence, cigarettes, uncomplicated; I21.A1 Myocardial infarction type 2; I08.1 Rheumatic disorders of both mitral and tricuspid valves; I25.2 Old myocardial infarction; I42.9 Cardiomyopathy, unspecified; I50.43 Acute on chronic combined systolic (congestive) and diastolic (congestive) heart failure; K76.0 Fatty (change of) liver, not elsewhere classified; K85.90 Acute pancreatitis without necrosis or infection, unspecified; N18.9 Chronic kidney disease, unspecified; R65.21 Severe sepsis with septic shock; R57.0 Cardiogenic shock; Z59.01 Sheltered homelessness; E87.5 Hyperkalemia; Y92.89 Other specified places as the place of occurrence of the external cause; E66.3 Overweight; Z68.30 Body mass index [BMI] 30.0-30.9, adult; F16.10 Hallucinogen abuse, uncomplicated; F99 Mental disorder, not otherwise specified
CPT/HCPCS: 36415; 36600; 70030-TC; 71045; 76705; 82533; 83605; 83615; 83690; 83735; 83930; 83935; 83970; 84100; 84155; 84156; 84165; 84300; 84443; 85025; 85610; 85730; 86704; 86706; 86709; 86803; 86850; 86900; 86901; 87040; 87070; 87086; 87340; 87806; 90937; 93005; 93307; 94002; 94003; A4663; C9113; G0378; G0480; J0330; J0610; J0692; J1265; J1720; J1815; J1940; J2185; J2248; J2270; J2370; J2543; J3370; J3430; J3475; J3490; J7040; J7042; J7050; J7060; P9012; P9047; P9059